=== PATIENT | female | born 1980 | race Caucasian/White ===

== ENCOUNTER 2018-04-05 12:49 | Emergency (ER) | payer MEDICAID ==
[~2018-04-05] VITALS: Ht 172.7 cm; Wt 108.9 kg
[~2018-04-05 12:49] MED LIST: ABILIFY10 MG PO; ABILIFY15 MG PO; ACETAMINOPHEN-1 EAC1 PO; ALBUTEROL INH; ALLOPURINOL 30300 M2 PO; AUGMENTIN 875875 MG PO; AZITHROMYCIN 2250 MG PO; BUTRANS1 EAC1 TD; CEFTIN 250 MG250 MG PO; CELEXA PO; CELEXA20 MG PO; CLONAZEPAM 1 MG1 M1; CLONAZEPAM PO; CLONAZEPAM2 MG PO; DEMADEX20 MG PO; DURAGESIC1 EAC2 TRANSDERM; ELIQUIS2.5 MG PO; ELIQUIS5 MG PO; FLEXERIL PO; HYDROCODONE-AP1 EAC6 PO; LANTUS; LANTUS SOL100 UNIT/1 SUBQ; LANTUS100 UNIT/M SUBQ; LATUDA20 MG PO; LUTERA1 EACH; METHOCARBAMOL750 MG; MISOPROSTOL 2200 MC1; MORPHINE SULFAT15 M3; MS CONTIN 30 MG30 M1 PO; NECON1 EACH; NICOTINE TRANSD21 M1 TRANSDERM; NORA-BE0.35 MG PO; NORCO 5-325 TA1 EAC1 PO; NORCO 5-325 TA1 EACH PO; OMEPRAZOLE 20 M20 M1 PO; ONDANSETRON HCL4 M2 PO; ONGLYZA5 MG PO; OXYCODONE HCL E15 MG PO; OXYCONTIN10 M1 PO; OXYCONTIN20 M1 PO; OXYCONTIN30 MG PO; PERCOCET; PERMETHRIN60 GM TOP; PHENERGAN 25 MG25 M1; POTASSIUM20; POTASSIUM20 PO; PREDNISONE 20 M20 M1 PO; PREDNISONE 20 M20 MG PO; PREDNISONE50 MG PO; SINGULAIR 10 MG10 M1 PO; SYMBICORT80 MCG/4.1 INH; SYMBICORT80 MCG/4.5 INH; TESSALON200 MG PO; TORSEMIDE20 MG; VENLAFAXINE HC225 MG PO; VENTOLIN HFA 1818 GM INH; XARELTO10 MG PO; XOPENEX HFA15 GM; ZANAFLEX4 MG PO; ZANTAC 150MG T150 MG PO; ZANTAC PO; ZOFRAN ODT4 MG PO; ZUPLENZ4 MG PO
[2018-04-05 13:46] LABS: URINE BILIRUBIN NEGATIVE (Negative); URINE BLOOD 3+ (Negative); URINE CLARITY CLEAR; URINE COLOR YELLOW; URINE GLUCOSE-RANDOM NEGATIVE (Negative); URINE KETONES NEGATIVE (Negative); URINE LEUKOCYTES-REFLEX TRACE (Negative); URINE NITRITE-REFLEX NEGATIVE (Negative); URINE PROTEIN NEGATIVE (Negative); URINE SPECIFIC GRAVITY 1.025 (1.005-1.030); URINE UROBILINOGEN 0.2 E.U./dl (0.2-1.0)
[2018-04-05 13:52] LABS: SQUAMOUS >10 Many /LPF (0-3)
[2018-04-05 13:53] LABS: BACTERIA-REFLEX >30 Many /HPF (None Seen); CASTS None Seen /LPF (None Seen); CRYSTALS None Seen /LPF (None Seen); MUCUS None Seen strn/LPF (None Seen)
[2018-04-05 13:55] LABS: ABSOLUTE BASOPHILS 0.1 thou/uL (0.0-0.2); ABSOLUTE LYMPHOCYTES 2.8 thou/uL (0.8-5.3); ABSOLUTE MONOCYTES 0.7 thou/uL (0.0-1.2); ABSOLUTE NEUTROPHILS 9.2 thou/uL (1.6-8.1); BASOPHILS 0.5 %; EOSINOPHILS 0.3 %; HEMATOCRIT 39.4 % (37.0-47.0); LYMPHOCYTES 21.5 %; MCH 28.6 pg (26.0-34.0); MCV 86.6 fL (80.0-100.0); MONOCYTES 5.5 %; NUCLEATED RBCS 0 /100WBC; PLATELET COUNT* 315 thou/uL (150-400); POLYS 72.2 %; RBC 4.55 mil/uL (4.20-5.00); WBC 12.8 thou/uL (4.0-11.0)
[2018-04-05 14:06] LABS: CALCIUM 8.7 mg/dL (8.5-10.1)
[2018-04-05 14:11] LABS: ALBUMIN 3.3 g/dL (3.4-5.0); TOTAL BILIRUBIN 0.2 mg/dL (<0.1-1.0); TOTAL PROTEIN 7.3 g/dL (6.4-8.2)
[2018-04-05] MEDS ORDERED: FLAGYL500 MG PO (15:49)
[2018-04-05] MEDS ORDERED: BENTYL 20 MG TA20 M1 PO (15:49)
[2018-04-05 16:02] VITALS: BP 129/79
== END 2018-04-05 16:04 | disposition home or self-care (01) ==
LOC: M.ERS 12:49
PROVIDERS: Nurse Practitioner Family
DX: K52.9 Noninfective gastroenteritis and colitis, unspecified (principal); E11.9 Type 2 diabetes mellitus without complications; J45.909 Unspecified asthma, uncomplicated; F41.9 Anxiety disorder, unspecified; F17.210 Nicotine dependence, cigarettes, uncomplicated; Z88.0 Allergy status to penicillin; Z88.1 Allergy status to other antibiotic agents; Z88.8 Allergy status to other drugs, medicaments and biological substances; Z90.49 Acquired absence of other specified parts of digestive tract; Z86.14 Personal history of Methicillin resistant Staphylococcus aureus infection

== ENCOUNTER 2018-07-01 14:29 | Emergency (ER) | payer MEDICAID ==
[~2018-07-01] VITALS: Ht 172.7 cm; Wt 102.1 kg
[~2018-07-01 14:29] MED LIST changes: +BENTYL 20 MG TA20 M1 PO; +FLAGYL500 MG PO
[2018-07-01 14:32] VITALS: BP 148/90
[2018-07-01] MEDS ORDERED: ABILIFY MAINTE400 M1 IM (14:34)
[2018-07-01] MEDS ORDERED: SYMBICORT160 MCG/4. INH (14:36)
[2018-07-01] MEDS ORDERED: ZANAFLEX4 MG PO (14:58)
[2018-07-01] MEDS ORDERED: NORCO 5-325 TA1 EAC1 PO (14:58)
== END 2018-07-01 15:05 | disposition home or self-care (01) ==
LOC: M.ERS 14:29
DX: G89.29 Other chronic pain (principal); M54.5 Low back pain; Z76.0 Encounter for issue of repeat prescription; J45.909 Unspecified asthma, uncomplicated; F32.9 Major depressive disorder, single episode, unspecified; F41.9 Anxiety disorder, unspecified; E11.9 Type 2 diabetes mellitus without complications; Z90.49 Acquired absence of other specified parts of digestive tract; Z86.14 Personal history of Methicillin resistant Staphylococcus aureus infection; F17.210 Nicotine dependence, cigarettes, uncomplicated; Z88.0 Allergy status to penicillin; Z88.1 Allergy status to other antibiotic agents; Z88.2 Allergy status to sulfonamides

== ENCOUNTER 2019-04-11 02:01 | Emergency (ER) | payer MEDICAID ==
[~2019-04-11] VITALS: Ht 172.7 cm; Wt 122.0 kg
[~2019-04-11 02:01] MED LIST changes: +ABILIFY MAINTE400 M1 IM; +SYMBICORT160 MCG/4. INH
[2019-04-11] MEDS ORDERED: IRON325 PO (02:15)
[2019-04-11] MEDS ORDERED: EFFEXOR XR75 MG PO (02:16)
[2019-04-11] MEDS ORDERED: COLACE100 MG PO (02:16)
[2019-04-11] MEDS ORDERED: NIFEDIPINE ER30 M1 PO (02:17)
[2019-04-11 02:45] LABS: ABSOLUTE BASOPHILS 0.1 thou/uL (0.0-0.2); ABSOLUTE EOSINOPHILS 0.2 thou/uL (0.0-0.7); ABSOLUTE LYMPHOCYTES 2.2 thou/uL (0.8-5.3); ABSOLUTE MONOCYTES 0.8 thou/uL (0.0-1.2); BASOPHILS 0.8 %; EOSINOPHILS 1.8 %; HEMATOCRIT 33.2 % (37.0-47.0); HEMOGLOBIN 11.2 gm/dL (12.0-15.0); LYMPHOCYTES 21.3 %; MCH 31.5 pg (26.0-34.0); MCHC 33.7 g/dL (28.0-37.0); MCV 93.5 fL (80.0-100.0); MONOCYTES 7.5 %; MPV 7.5 fl. (7.2-11.1); NUCLEATED RBCS 0 /100WBC; PLATELET COUNT* 311 thou/uL (150-400); POLYS 68.6 %; RBC 3.55 mil/uL (4.20-5.00); RDW-CV 13.4 % (10.5-14.5); WBC 10.2 thou/uL (4.0-11.0)
[2019-04-11 03:09] LABS: CALCIUM 8.6 mg/dL (8.5-10.1); POTASSIUM 4.6 mmol/L (3.5-5.1)
[2019-04-11 03:20] LABS: ALBUMIN 2.3 g/dL (3.4-5.0); TOTAL BILIRUBIN 0.2 mg/dL (<0.1-1.0); TOTAL PROTEIN 6.5 g/dL (6.4-8.2)
[2019-04-11 03:39] VITALS: BP 118/61
== END 2019-04-11 03:39 | disposition home or self-care (01) ==
LOC: M.ERS 02:01
PROVIDERS: Family Medicine
DX: R60.0 Localized edema (principal); E11.9 Type 2 diabetes mellitus without complications; J45.909 Unspecified asthma, uncomplicated; F32.9 Major depressive disorder, single episode, unspecified; F41.9 Anxiety disorder, unspecified; F17.210 Nicotine dependence, cigarettes, uncomplicated; Z88.1 Allergy status to other antibiotic agents; Z88.0 Allergy status to penicillin; Z88.2 Allergy status to sulfonamides; Z88.8 Allergy status to other drugs, medicaments and biological substances; Z90.49 Acquired absence of other specified parts of digestive tract; Z86.14 Personal history of Methicillin resistant Staphylococcus aureus infection; Z98.890 Other specified postprocedural states

== ENCOUNTER 2019-04-16 18:06 | Emergency (ER) | payer MEDICAID ==
[~2019-04-16] VITALS: Ht 172.7 cm; Wt 120.2 kg
[~2019-04-16 18:06] MED LIST changes: +COLACE100 MG PO; +EFFEXOR XR75 MG PO; +IRON325 PO; +NIFEDIPINE ER30 M1 PO
[2019-04-16] MEDS ORDERED: BACTRIM DS TAB1 EACH PO (18:26)
[2019-04-16] MEDS ORDERED: HYDROCODONE-AP1 EAC6 PO (18:48)
[2019-04-16 18:58] LABS: URINE BILIRUBIN 1+ (Negative); URINE BLOOD 2+ (Negative); URINE CLARITY CLEAR; URINE COLOR YELLOW; URINE GLUCOSE-RANDOM NEGATIVE (Negative); URINE KETONES TRACE (Negative); URINE LEUKOCYTES-REFLEX 1+ (Negative); URINE NITRITE-REFLEX NEGATIVE (Negative); URINE PROTEIN NEGATIVE (Negative); URINE SPECIFIC GRAVITY 1.025 (1.005-1.030); URINE UROBILINOGEN 0.2 E.U./dl (0.2-1.0)
[2019-04-16 19:01] VITALS: BP 109/70
[2019-04-16 19:01] LABS: ICTOTEST (BILI CONFIRMATORY) Negative (Negative)
[2019-04-16 19:07] LABS: CRYSTALS None Seen /LPF (None Seen); MUCUS 0-3 Light strn/LPF (None Seen); SQUAMOUS >10 Many /LPF (0-3)
[2019-04-16 19:08] LABS: BACTERIA-REFLEX 1-9 Few /HPF (None Seen); URINE WBC-REFLEX 6-15 Few /HPF (0-5)
[2019-04-16 19:09] LABS: CASTS None Seen /LPF (None Seen); URINE RBC 3-10 Few /HPF (0-2)
[2019-04-17] MEDS ORDERED: MACROBID 100 M100 M1 PO (16:59)
== END 2019-04-16 19:02 | disposition home or self-care (01) ==
LOC: M.ERS 18:06
PROVIDERS: Physician Assistant
DX: N39.0 Urinary tract infection, site not specified (principal); G89.29 Other chronic pain; F17.210 Nicotine dependence, cigarettes, uncomplicated; J45.909 Unspecified asthma, uncomplicated; F32.9 Major depressive disorder, single episode, unspecified; F41.9 Anxiety disorder, unspecified; E11.9 Type 2 diabetes mellitus without complications; Z98.890 Other specified postprocedural states; Z88.1 Allergy status to other antibiotic agents; Z88.0 Allergy status to penicillin; Z90.49 Acquired absence of other specified parts of digestive tract; Z88.8 Allergy status to other drugs, medicaments and biological substances; Z88.2 Allergy status to sulfonamides

== ENCOUNTER 2019-04-30 00:35 | Emergency (ER) | payer MEDICAID ==
[~2019-04-30] VITALS: Ht 172.7 cm; Wt 121.6 kg
[~2019-04-30 00:35] MED LIST changes: +BACTRIM DS TAB1 EACH PO; +MACROBID 100 M100 M1 PO
[2019-04-30] MEDS ORDERED: ZOFRAN ODT4 MG DISSOLVE (00:52)
[2019-04-30] MEDS ORDERED: DOXYCYCLINE 10100 MG PO (00:52)
[2019-04-30] MEDS ORDERED: TRINATAL RX 11 EACH PO (00:52)
[2019-04-30] MEDS ORDERED: NYAMYC15 GM TOP (00:52)
[2019-04-30] MEDS ORDERED: FLAGYL500 M1 PO (00:53)
[2019-04-30 01:32] LABS: ABSOLUTE BASOPHILS 0.1 thou/uL (0.0-0.2); ABSOLUTE EOSINOPHILS 0.3 thou/uL (0.0-0.7); ABSOLUTE LYMPHOCYTES 2.5 thou/uL (0.8-5.3); ABSOLUTE MONOCYTES 0.6 thou/uL (0.0-1.2); ABSOLUTE NEUTROPHILS 6.8 thou/uL (1.6-8.1); BASOPHILS 0.7 %; EOSINOPHILS 2.5 %; HEMATOCRIT 31.3 % (37.0-47.0); HEMOGLOBIN 10.6 gm/dL (12.0-15.0); LYMPHOCYTES 24.4 %; MCH 30.5 pg (26.0-34.0); MCV 89.8 fL (80.0-100.0); MONOCYTES 6.2 %; MPV 6.9 fl. (7.2-11.1); NUCLEATED RBCS 0 /100WBC; PLATELET COUNT* 449 thou/uL (150-400); POLYS 66.2 %; RBC 3.49 mil/uL (4.20-5.00); RDW-CV 14.4 % (10.5-14.5); WBC 10.2 thou/uL (4.0-11.0)
[2019-04-30 01:40] LABS: ANION GAP 10 mmol/L (7-16); BUN 11 mg/dL (7-18); CALCIUM 8.5 mg/dL (8.5-10.1); CHLORIDE 104 mmol/L (98-107); CO2 27 mmol/L (21-32); CREATININE 0.9 mg/dL (0.6-1.3); GLUCOSE 148 mg/dL (70-99); POTASSIUM 3.4 mmol/L (3.5-5.1); SODIUM 141 mmol/L (136-145)
[2019-04-30 01:41] LABS: BE 1.8 mmol/L (-2 to +3); PO2 116.6 mmHg (75.0-100.0); pH 7.497 (7.340-7.450)
[2019-04-30 01:45] LABS: APTT 27.9 Seconds (25.0-31.3); PROTIME 10.5 Seconds (9.20-11.50)
[2019-04-30 01:49] LABS: ALBUMIN 2.5 g/dL (3.4-5.0); ALKALINE PHOSPHATASE 454 U/L (46-116); MAGNESIUM 1.5 mg/dL (1.8-2.4); SGOT 18 U/L (15-37); SGPT 48 U/L (30-65); TOTAL BILIRUBIN 0.2 mg/dL (<0.1-1.0); TOTAL PROTEIN 6.7 g/dL (6.4-8.2); TROPONIN-I LEVEL <0.06 ng/mL (<0.06)
[2019-04-30 03:54] LABS: URINE BILIRUBIN NEGATIVE (Negative); URINE BLOOD 2+ (Negative); URINE CLARITY CLEAR; URINE COLOR DARK YELLOW; URINE GLUCOSE-RANDOM NEGATIVE (Negative); URINE KETONES NEGATIVE (Negative); URINE LEUKOCYTES-REFLEX TRACE (Negative); URINE NITRITE-REFLEX NEGATIVE (Negative); URINE PROTEIN NEGATIVE (Negative); URINE SPECIFIC GRAVITY 1.015 (1.005-1.030); URINE UROBILINOGEN 0.2 E.U./dl (0.2-1.0)
[2019-04-30 04:29] LABS: SQUAMOUS 4-10 Moderate /LPF (0-3); TRANSITIONAL EPITHEL CELL 0-3 Few /LPF (None Seen)
[2019-04-30 04:30] LABS: CASTS None Seen /LPF (None Seen); CRYSTALS None Seen /LPF (None Seen); MUCUS 0-3 Light strn/LPF (None Seen); URINE WBC-REFLEX 6-15 Few /HPF (0-5)
[2019-04-30 04:55] VITALS: BP 117/51
== END 2019-04-30 04:55 | disposition home or self-care (01) ==
LOC: M.ERS 00:35
PROVIDERS: Personal Emergency Response Attendant
DX: R06.02 Shortness of breath (principal); M54.9 Dorsalgia, unspecified; R10.12 Left upper quadrant pain; R10.11 Right upper quadrant pain; J45.909 Unspecified asthma, uncomplicated; F32.9 Major depressive disorder, single episode, unspecified; F41.9 Anxiety disorder, unspecified; E11.9 Type 2 diabetes mellitus without complications; F17.210 Nicotine dependence, cigarettes, uncomplicated; Z88.1 Allergy status to other antibiotic agents; Z88.2 Allergy status to sulfonamides; Z88.0 Allergy status to penicillin; Z88.8 Allergy status to other drugs, medicaments and biological substances; Z90.49 Acquired absence of other specified parts of digestive tract; Z86.14 Personal history of Methicillin resistant Staphylococcus aureus infection; Z98.890 Other specified postprocedural states

== ENCOUNTER 2020-11-19 19:32 | Emergency (ER) | payer MEDICAID ==
[~2020-11-19] VITALS: Ht 172.7 cm; Wt 108.9 kg
--- NOTE | ~2020-11-19 | EKG ---
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
[~2020-11-19 19:32] MED LIST changes: +DOXYCYCLINE 10100 MG PO; +FLAGYL500 M1 PO; +NYAMYC15 GM TOP; +TRINATAL RX 11 EACH PO; +ZOFRAN ODT4 MG DISSOLVE
[2020-11-19] MEDS ORDERED: ABILIFY MAINTE300 MG IM (19:41)
[2020-11-19] MEDS ORDERED: PRAVASTATIN SOD20 MG PO (19:42)
[2020-11-19] MEDS ORDERED: MEDROXYPROGESTE10 MG PO (19:43)
[2020-11-19] MEDS ORDERED: NEXPLANON68 MG SUBQ (19:44)
[2020-11-19 20:12] LABS: ABSOLUTE BASOPHILS 0.2 thou/uL (0.0-0.2); ABSOLUTE EOSINOPHILS 0.1 thou/uL (0.0-0.7); ABSOLUTE LYMPHOCYTES 3.8 thou/uL (0.8-5.3); ABSOLUTE MONOCYTES 0.9 thou/uL (0.0-1.2); ABSOLUTE NEUTROPHILS 8.8 thou/uL (1.6-8.1); BASOPHILS 1.1 %; EOSINOPHILS 0.7 %; HEMATOCRIT 41.8 % (37.0-47.0); HEMOGLOBIN 14.3 gm/dL (12.0-15.0); LYMPHOCYTES 27.5 %; MCH 30.9 pg (26.0-34.0); MCHC 34.3 g/dL (28.0-37.0); MCV 90.2 fL (80.0-100.0); MONOCYTES 6.8 %; MPV 7.4 fl. (7.2-11.1); NUCLEATED RBCS 0 /100WBC; PLATELET COUNT* 403 thou/uL (150-400); POLYS 63.9 %; RBC 4.63 mil/uL (4.20-5.00); RDW-CV 12.8 % (10.5-14.5); WBC 13.8 thou/uL (4.0-11.0)
[2020-11-19 20:24] LABS: APTT 27.3 Seconds (25.0-31.3); PROTIME 10.9 Seconds (9.20-11.50)
[2020-11-19 20:26] LABS: CALCIUM 8.4 mg/dL (8.5-10.1); CREATININE 0.8 mg/dL (0.6-1.3); POTASSIUM 3.2 mmol/L (3.5-5.1)
[2020-11-19 20:37] LABS: ALBUMIN 3.3 g/dL (3.4-5.0); TOTAL BILIRUBIN 0.3 mg/dL (<0.1-1.0); TOTAL PROTEIN 7.3 g/dL (6.4-8.2)
[2020-11-19] MEDS ORDERED: VENTOLIN HFA 1818 GM INH (22:04)
[2020-11-19] MEDS ORDERED: TRAMADOL 50 MG50 MG PO (22:04)
[2020-11-19 22:14] VITALS: BP 132/70
== END 2020-11-19 22:15 | disposition home or self-care (01) ==
LOC: M.ERS 19:32
PROVIDERS: Nurse Practitioner Family
DX: R07.89 Other chest pain (principal); R06.00 Dyspnea, unspecified; Z20.828 Contact with and (suspected) exposure to other viral communicable diseases; J45.909 Unspecified asthma, uncomplicated; E11.9 Type 2 diabetes mellitus without complications; F17.210 Nicotine dependence, cigarettes, uncomplicated; Z88.1 Allergy status to other antibiotic agents; Z88.0 Allergy status to penicillin; Z88.2 Allergy status to sulfonamides; Z88.5 Allergy status to narcotic agent; Z90.49 Acquired absence of other specified parts of digestive tract; Z86.711 Personal history of pulmonary embolism